=== PATIENT | female | born 1935 | race Caucasian/White ===

== ENCOUNTER 2025-04-08 12:39 | Observation (INO) | payer MEDICARE, SELFPAY ==
[2025-04-08] VITALS (50 sets, daily range): BP systolic 75–130; BP diastolic 42–90; PULSE 60–111; RESP 12–22; TEMP 34.8–36.7; O2SAT 86–100; BMI 21.4
--- NOTE | ~2025-04-08 | CT_ITS ---
EXAMINATION:CT diagnostic chest w con DATE: 04/08/2025 16:27 INDICATION: Hilar abnormality TECHNIQUE: Computed tomography (CT) of the chest was performed with IV intravenous contrast. The dose-length product (DLP) was 282.23 mGy-cm. COMPARISON: Chest x-ray same date FINDINGS: Central and main pulmonary arteries are significantly enlarged especially the main pulmonary artery which measures 4.8 cm, and the right pulmonary artery which measures 3.4 cm in diameter. The pulmonary arteries taper sharply. No central or large pulmonary emboli. No thoracic aortic aneurysm or dissection. Heart size normal with no significant pericardial effusion. Coronary artery calcifications are present. No lymphadenopathy appreciated. Mild dependent fibrotic and/or atelectatic changes in the lungs which are otherwise clear. No consolidation effusion or pneumothorax. Diffuse degenerative changes throughout the bones. Approximately 60% compression fracture of L1 with 7 mm of retropulsion of the superior cortex present. Approximately 40% anterior compression fracture of T12. Approximately 40% anterior compression fracture also present involving T9, and 25 % anterior compression fracture T6. The bones are diffusely osteopenic. Advanced osteopenic and degenerative changes throughout the thoracic spine. IMPRESSION: 1. Significant enlargement of the main and right pulmonary arteries but no suspicious mass or lymphadenopathy. Pulmonary artery enlargement likely associated with pulmonary arterial hypertension. 2. Multilevel compression fractures throughout the thoracic spine and L1; the most severe in seen is at L1 where there is 60% compression fracture and approximate 7 mm of retropulsion. Chronicity of fractures of unknown. Correlate with dedicated spinal imaging as clinically appropriate. 3. Mild ectatic changes in the lung bases which are otherwise clear. Reviewed, dictated and finalized at location A. PUSHER IMPRESSION: 1. Significant enlargement of the main and right pulmonary arteries but no susp icious mass or lymphadenopathy. Pulmonary artery enlargement likely associated with pulmonary arterial hypertension. 2. Multilevel compression fractures throughout the thoracic spine and L1; the m ost severe in seen is at L1 where there is 60% compression fracture and approxi mate 7 mm of retropulsion. Chronicity of fractures of unknown. Correlate with d edicated spinal imaging as clinically appropriate. 3. Mild ectatic changes in the lung bases which are otherwise clear.
--- NOTE | ~2025-04-08 | XR_ITS ---
Examination: XR chest 1V Clinical History: syncope Comparison: None Technique: Portable AP Findings: Heart size mildly enlarged. Right hilar fullness. Mild bibasilar atelectasis. No acute bony abnormality. IMPRESSION: 1. Recommend CT chest with contrast. Right hilar abnormality not excluded. Reviewed, dictated and finalized at location . SPREADER OPERATOR
--- NOTE | ~2025-04-08 | CT_ITS ---
EXAMINATION: CT cervical spine wo con COMPARISON: None HISTORY: pain TECHNIQUE: Axial images were obtained through the spine without IV contrast. Coronal, sagittal reconstruction images were obtained from the axial views. CT scan performed using dose optimization techniques including the following automated exposure control; adjustment of mA and/or kV; use of iterative reconstruction technique. Automatic exposure control was used to reduce radiation dose. Permanent radiation dose record is archived to PACS. FINDINGS: Grade 1 anterolisthesis of C3 on C4 and C4 on C5, no fracture is identified. Severe loss of disc height at C5-6 and C6-7 with moderate to severe canal and foraminal stenosis. Soft tissues unremarkable. Impression: No acute abnormality. Reviewed, dictated and finalized at location P. OPEDIC SURGEON Impression: No acute abnormality.
--- NOTE | ~2025-04-08 | CT_ITS ---
EXAMINATION: CT brain wo con DATE: 04/08/2025 14:21 INDICATION: Fall TECHNIQUE: Computed tomography (CT) of the head was performed without intravenous contrast. Sagittal and coronal reconstructions were performed. The mA was adjusted according to patient size. Iterative reconstruction technique was employed. The dose-length product was 605.33 mGy-cm. COMPARISON: None FINDINGS: No acute intracranial hemorrhage, acute infarction or abnormal extra axial fluid collection. There is moderate scattered white matter hypoattenuation consistent with chronic small vessel ischemic disease. Symmetric prominence of the sulci and ventricles consistent with mild to moderate age-appropriate diffuse cerebral volume loss. No mass/mass effect. Changes of bilateral intraocular lens replacement. Mild mucosal thickening in the ethmoid sinuses with mucosal thickening versus dependent mucus partially opacifying the left sphenoid sinus. The bilateral mastoids are hypopneumatized with small bilateral mastoid effusions. Intracranial calcified cerebral atherosclerosis is noted. IMPRESSION: 1. No acute intracranial process. 2. Age-related changes including mild to moderate diffuse volume loss and moderate scattered white matter hypoattenuation consistent with chronic small vessel ischemic disease. 3. Small bilateral mastoid effusions. Reviewed, dictated and finalized at location A. CH PATHOLOGY TEACHER IMPRESSION: 1. No acute intracranial process. 2. Age-related changes including mild to moderate diffuse volume loss and moder ate scattered white matter hypoattenuation consistent with chronic small vessel ischemic disease. 3. Small bilateral mastoid effusions.
--- NOTE | 2025-04-08 12:58 | ECG_ITS ---
Test Date: 2025-04-08 13:02:53 Measurements Intervals [place] Rate: 97 P: 0 CO: 0 QRS: -2 QRSD: 113 T: 60 QT: 407 QTc: 518 Interpretive Statements ATRIAL FIBRILLATION INCOMPLETE LEFT BUNDLE BRANCH BLOCK NONSPECIFIC ST & T-WAVE ABNORMALITY- LAT/HIGH LAT LEADS BASELINE ARTIFACT- I, II, III, AVF, V1-V2, V6 ABNORMAL ECG No previous ECG available for comparison Electronically Signed On 04-08-2025 13:15:09 BOX BUILDER by Baljit Shah D.O.
[2025-04-08] MEDS: SODIUM CHLORIDE 0.9% IV 1,000 ML 999 ML IV CONT (13:52)
[2025-04-08] MEDS: SODIUM CHLORIDE 0.9% IV 1,000 ML 999 ML (13:53)
--- NOTE | 2025-04-08 13:53 | PC.NURSE ---
miki from Dr Meraz to start 2nd bolus of NS due to BP 76/51
[2025-04-08 14:07] LABS: Hematocrit 37.5 % (37.0-47.0); Hemoglobin 11.8 g/dL (12.0-15.0); Immature Granulocyte Percent A 0.2 % (0-0.5); Lymphocytes Absolute Auto 1.06 K/mm3 (0.9-3.2); Mean Corpuscular HGB Conc 31.5 g/dl (32-36); Mean Corpuscular Hemoglobin 30.1 pg (26-34); Mean Corpuscular Volume 95.7 fl (80-100); Nucleated Red Blood Cells Absolute Auto 0.000 K/mm3 (0.0-0.012); Nucleated Red Blood Cells Perc 0.0 % (0.0-0.2); Platelet Count Result 159 k/mm3 (150-375); Red Blood Count 3.92 M/mm3 (4.2-5.4); White Blood Count 4.2 K/mm3 (4.5-10.0)
[2025-04-08 14:26] LABS: Alanine Aminotransferase 17 U/L (6-35); Albumin Level 4.0 g/dL (3.5-5.1); Alkaline Phosphatase 54 U/L (38-126); Anion Gap 11 mmol/L (4-12); Aspartate Amino Transferase 30 U/L (14-36); Bilirubin,Total 0.9 mg/dL (0.2-1.3); Blood Urea Nitrogen 16 mg/dL (7-17); Calcium 8.5 mg/dL (8.4-10.2); Carbon Dioxide 20 mmol/L (22-30); Chloride 108 mmol/L (98-107); Estimated CRCL calculation 30 ml/min; Estimated Glomerular Filt Rate 53; Glucose 113 mg/dL (65-110); Potassium 3.5 mmol/L (3.4-5.0); Sodium 139 mmol/L (137-145); Total Protein 6.9 g/dL (6.3-8.2)
[2025-04-08 14:30] LABS: Add Urine Microscopic? YES; Appearance Urine Clear (Clear); Glucose Urine UA Negative (Negative); Leukocyte Esterase Ur Negative LEU/UL (Negative); Need Manual Microscopic Reviewed; Nitrate Urine Negative (Negative); Specific Grav Ur 1.008 (1.001-1.035)
[2025-04-08 14:46] LABS: Influenza A QL RT-PCR Negative (Negative); Influenza B QL RT-PCR Negative (Negative); RSV RNA, RT-PCR Negative (Negative); SARS-CoV-2 RNA PCR Negative (Negative)
[2025-04-08] MEDS: SODIUM CHLORIDE 0.9% IV 1,000 ML 150 ML IV CONT (14:59)
--- NOTE | 2025-04-08 15:17 | PC.NURSE ---
Spoke to Clare rodriguez Ute at this time regarding pt condition. All questions answered.
--- NOTE | 2025-04-08 15:21 | ED_ITS ---
HPI - Syncope General Chief Complaint: Syncope Stated Complaint: syncope Time Seen by Provider: 04/08/25 13:08 History of Present Illness HPI narrative: Patient is an 89-year-old female who presents to the ER after having an episode of syncope. She was sitting on the toilet pushing to have a bowel movement when she lost consciousness. Patient recently moved here from [facility] 2 weeks ago. She is suffering from dementia which necessitated the moved to be closer to family. Patient is anticoagulated on apixaban. Son helps with history though it is limited patient has no complaints of pain other than discomfort in her neck. Related Data Allergies Allergy/AdvReac Type Severity Reaction Status Date / Time No Known Allergies Allergy Verified 04/08/25 13:52 Review of Systems 2 Review of Systems: ROS unobtainable: Yes unobtainable due to mental status and other (language) PMFSH Past Medical History Medical History (Updated 04/08/25 @ 19:08 by Aguilar Meraz MD) Dementia Hypertension Afib Exam 2 Narrative: GENERAL: Well-appearing, well-nourished, and in no acute distress. HEAD: Normocephalic, atraumatic. ENT: Mucous membranes moist. CHEST: Clear to auscultation. No respiratory distress. HEART: Irregularly irregular rate and rhythm. Normal peripheral pulses. ABDOMEN: Soft, nontender, nondistended. EXTREMITIES: Normal range of motion. No edema. SKIN: Warm, dry, no rash. NEURO: Alert and oriented x3. PSYCH: Normal mood and affect. Course Course Emergency Course: Persistent hypotension despite IV fluid. Hypothermic and being placed on Marisol Hugger. Admit to hospitalist service. Educated patient son. Patient is a DNR. No obvious source of infection. Vital Signs Vital signs: Vital Signs Pulse Rate 60 04/08/25 12:39 Respiratory Rate 14 04/08/25 12:39 Pulse Oximetry 98 04/08/25 12:39 Oxygen Delivery Room Air 04/08/25 12:39 Temperature 94.6 F L 04/08/25 18:00 Pulse Rate 111 H 04/08/25 18:56 Respiratory Rate 16 04/08/25 18:56 Blood Pressure 103/84 04/08/25 18:56 Pulse Oximetry 98 04/08/25 18:51 Oxygen Delivery Room Air 04/08/25 12:39 Discharge Plan Discharge Clinical Impression: Syncope, Hypothermia, TSH elevation Patient Disposition: Still a Patient Condition: Stable Patient Language: Ukrainian Follow-up/Referrals: PHYSICIAN NOT ON STAFF,NONSTAFF [Primary Care Provider] [facility] Differential Diagnosis Differential Diagnosis: Sepsis, pneumonia, UTI, TORO, anemia, internal bleeding, intracranial hemorrhage Lab Data 04/08/25 13:49 04/08/25 13:49 Labs: Lab Results 04/08/25 04/08/25 Range/Units 13:48 13:49 WBC 4.2 L (4.5-10.0) K/mm3 RBC 3.92 L (4.2-5.4) M/mm3 Hgb 11.8 L (12.0-15.0) g/dL Hct 37.5 (37.0-47.0) % MCV 95.7 (80-100) fl MCH 30.1 (26-34) pg MCHC 31.5 L (32-36) g/dl RDW 15.0 H (11.5-14.5) % Plt Count 159 (150-375) k/mm3 MPV 11.3 H (7.4-10.4) fl Immature Gran % (Auto) 0.2 (0-0.5) % Neut % (Auto) 64.2 (45.5-73.1) % Lymph % (Auto) 25.1 (18.3-44.2) % [place] % (Auto) 8.8 H (2.6-8.5) % Eos % (Auto) 1.2 (0-4.4) % Baso % (Auto) 0.5 (0.2-1.2) % Lymph # (Auto) 1.06 (0.9-3.2) K/mm3 [place] # (Auto) 0.4 (0.1-0.6) K/mm3 Eos # (Auto) 0.1 (0-0.3) K/mm3 Baso # (Auto) 0.0 (0.0-0.1) K/mm3 Abs Immat Gran (auto) 0.01 (0.00-0.031) K/mm3 Absolute Neuts (auto) 2.7 (1.3-6.7) K/mm3 Absolute Nucleated RBC 0.000 (0.0-0.012) K/mm3 Nucleated RBC % 0.0 (0.0-0.2) % Sodium 139 (137-145) mmol/L Potassium 3.5 (3.4-5.0) mmol/L Chloride 108 H (98-107) mmol/L Carbon Dioxide 20 L (22-30) mmol/L Anion Gap 11 (4-12) mmol/L BUN 16 (7-17) mg/dL Creatinine 0.99 (0.7-1.0) mg/dL Estim Creat Clear Calc 30 ml/min Estimated GFR 53 L (59 - ) Glucose 113 H (65-110) mg/dL Calcium 8.5 (8.4-10.2) mg/dL Total Bilirubin 0.9 (0.2-1.3) mg/dL AST 30 (14-36) U/L ALT 17 (6-35) U/L Alkaline Phosphatase 54 (38-126) U/L Total Protein 6.9 (6.3-8.2) g/dL Albumin 4.0 (3.5-5.1) g/dL TSH (Reflex) 6.850 H (0.465-4.68) uIU/mL Free T4 1.83 (0.78-2.19) ng/dL Total T3 0.83 (0.82-1.58) NG/ML Urine Color Yellow (Yellow) Urine Appearance Clear (Clear) Urine pH 7.5 (5.0-9.0) Ur Specific [place] 1.008 (1.001-1.035) Urine Protein 1+ H (Negative) mg/dL Urine Glucose (UA) Negative (Negative) mg/dL Urine Ketones Negative (Negative) mg/dL Ur Blood (Man) Negative (Negative) Urine Nitrate Negative (Negative) Urine Bilirubin Negative (Negative) Urine Urobilinogen 0.2 (<2.0) mg/dL Add Ur Microanalysis Reviewed Leukocyte Esterase Rfl Negative (Negative) RA/UL Urine RBC 0-2 (0-2) /hpf Urine WBC 0-5 (0-3) /hpf Ur Squamous Epith Cells None seen (Few) /hpf Urine Bacteria None seen /hpf Urine Casts 3-5 Influenza A (RT-PCR) Negative (Negative) Influenza B (RT-PCR) Negative (Negative) RSV (RT-PCR) Negative (Negative) SARS-CoV-2 RNA (RT-PCR) Negative (Negative) Blood Type A Positive Antibody Screen Negative Imaging Data Radiologist's impression: ITS Impressions Head CT 04/08/25 14:22 IMPRESSION: 1. No acute intracranial process. 2. Age-related changes including mild to moderate diffuse volume loss and moderate scattered white matter hypoattenuation consistent with chronic small vessel ischemic disease. 3. Small bilateral mastoid effusions. Cervical Spine CT 04/08/25 14:26 Impression: No acute abnormality. Chest X-Ray 04/08/25 14:30 IMPRESSION: 1. Recommend CT chest with contrast. Right hilar abnormality not excluded. Chest CT 04/08/25 16:34 IMPRESSION: 1. Significant enlargement of the main and right pulmonary arteries but no suspicious mass or lymphadenopathy. Pulmonary artery enlargement likely associated with pulmonary arterial hypertension. 2. Multilevel compression fractures throughout the thoracic spine and L1; the most severe in seen is at L1 where there is 60% compression fracture and approximate 7 mm of retropulsion. Chronicity of fractures of unknown. Correlate with dedicated spinal imaging as clinically appropriate. 3. Mild ectatic changes in the lung bases which are otherwise clear.
[2025-04-08 16:13] LABS: Thyroid Stimulating Hormone Reflex 6.850 uIU/mL (0.465-4.68)
[2025-04-08] MEDS: POTASSIUM CHLORIDE 20 MEQ PACKET (FOR LIQUID) 40 MEQ PO (16:38)
[2025-04-08 16:39] LABS: Free T4 Free Thyroxine Reflex 1.83 ng/dL (0.78-2.19)
[2025-04-08 17:21] LABS: Total Triiodothyronine (T3) 0.83 NG/ML (0.82-1.58)
--- NOTE | 2025-04-08 19:44 | WPCEDHO ---
ED Hand Off Checklist All vitals saved:yes IV Site documented:yes All med administrations documented:es Triage Note Triage Note Pt to ED from [facility] 04/08/25 12:39 Living with c/o syncope. Pt was toileting with staff when she pushed too hard and lost consciousness for about 1 minute. Pt has pmh of AAA, a-fib. Pt reports stomach pain. Pt has a 20g in her L hand. Pt is A&Ox3. Allergies No Known Allergies Allergy (Verified 04/08/25 13:52) Active Medications including assessments/comments Sodium Chloride (Normal Saline Iv) 1,000 mls @ 150 mls/hr IV CONT .Q6H40M STA Stop: 04/08/25 21:33 Last Admin: 04/08/25 14:59 Dose: 150 mls/hr Documented By: ARIADNA Infusion/Titration Document 04/08/25 14:59 ARIADNA (Rec: 04/08/25 14:59 ARIADNA [id number]) Intake IV Site Peripheral Access Right Forearm Container Volume 1,000 Waste Amount 0 Dosing Infusion Rate 150 Cumulative Dose Not Applicable Increase/Decrease Started Elapsed Time Elapsed Time ( 0m minutes) Administered/Completed Medications Discontinued Medications Sodium Chloride (Normal Saline Iv) 1,000 mls @ 999 mls/hr IV CONT .Q1H1M STA Stop: 04/08/25 14:43 Last Infusion: 04/08/25 14:52 Dose: Infused Documented By: Admin: 04/08/25 13:52 Dose: 999 mls/hr Documented By: RODNEY Sodium Chloride (Normal Saline Iv) Confirm Administered Dose 1,000 mls @ as directed .ROUTE .STK-MED ONE Stop: 04/08/25 13:45 Last Infusion: 04/08/25 14:52 Dose: Infused Documented By: Admin: 04/08/25 13:53 Dose: 999 mls/hr Documented By: RODNEY Potassium Chloride (Potassium Chloride 20 Meq Packet (For Liquid)) 40 meq PO ONCE STA Stop: 04/08/25 15:51 Last Admin: 04/08/25 16:38 Dose: 40 meq Documented By: ARIADNA Notes 04/08/25 15:17 Nurse Note by Benito Levy Spoke to Clare at [facility] at this time regarding pt condition. All questions answered. Initialized on 04/08/25 15:17 - END OF NOTE 04/08/25 13:53 Nurse Note by Joby Newton from Dr Meraz to start 2nd bolus of NS due to BP 76/51 Initialized on 04/08/25 13:53 - END OF NOTE Interventions/Assessments Cardiac Monitoring Start: 04/08/25 12:39 Freq: Status: Active Protocol: Document 04/08/25 12:56 MCO (Rec: 04/08/25 12:57 MCO [id number]) Baggage Checker Assessment Baggage Checker Yes Applied Pulse Rate (60-100) 60 EKG Rythm Atrial Fibrillation IV / Saline Lock, Insert Start: 04/08/25 12:39 Freq: Status: Active Protocol: Document 04/08/25 12:57 MCO (Rec: 04/08/25 12:58 MCO [id number]) IV Assessment Peripheral Access Left Hand IV Catheter Access Initiated Before Arrival IV Insertion Date 04/08/25 Catheter Gauge 20 IV Site Assessment WNL IV Care and WNL Maintenance IV / Saline Lock, Insert Start: 04/08/25 12:58 Freq: STAT Status: Active Protocol: Document 04/08/25 14:13 KJT (Rec: 04/08/25 14:13 KJT [id number]) IV Assessment Peripheral Access Right Forearm IV Catheter Access Initiated IV Insertion Date 04/08/25 IV Insertion Time 14:13 Catheter Gauge 20 IV Insertion 1 Attempts Ultrasound Used for No Placement IV Site Assessment WNL IV Care and WNL Maintenance PA: Cardiovascular Assessment Start: 04/08/25 12:39 Freq: Status: Active Protocol: Document 04/08/25 12:55 MCO (Rec: 04/08/25 12:56 MCO [id number]) Cardiovascular Assessment Cardiovascular None Symptoms Skin Description Cool Heart Sounds Normal Jugular Vein None Distention PA: Neurological Assessment Start: 04/08/25 12:39 Freq: Status: Active Protocol: Document 04/08/25 12:55 MCO (Rec: 04/08/25 12:56 MCO [id number]) Neurological Assessment Level of Alert,Awake Consciousness Arousable to Verbal Orientation Oriented to Person,Oriented to Time Neurological History of Loss of Consciousness Symptoms [place] Coma Scale Eyes Open Verbal Oriented and Alert Motor Follows Commands [place] Coma Total 15 Score Last Vital Signs Temperature 94.6 F L 04/08/25 18:00 Pulse Rate 111 H 04/08/25 18:56 Respiratory Rate 16 04/08/25 18:56 Pulse Oximetry 98 04/08/25 18:51 Blood Pressure 103/84 04/08/25 18:56 Blood Pressure Mean 91 04/08/25 18:56 Blood Pressure Position Sitting 04/08/25 13:32 Oxygen Delivery Room Air 04/08/25 12:39 Weight 56.4 kg 04/08/25 12:39 Last Result - Abnormals Only WBC 4.2 K/mm3 (4.5-10.0) L 04/08/25 13:49 RBC 3.92 M/mm3 (4.2-5.4) L 04/08/25 13:49 Hgb 11.8 g/dL (12.0-15.0) L 04/08/25 13:49 MCHC 31.5 g/dl (32-36) L 04/08/25 13:49 RDW 15.0 % (11.5-14.5) H 04/08/25 13:49 MPV 11.3 fl (7.4-10.4) H 04/08/25 13:49 [place] % (Auto) 8.8 % (2.6-8.5) H 04/08/25 13:49 Chloride 108 mmol/L (98-107) H 04/08/25 13:49 Carbon Dioxide 20 mmol/L (22-30) L 04/08/25 13:49 Estimated GFR 53 (59-) L 04/08/25 13:49 Glucose 113 mg/dL (65-110) H 04/08/25 13:49 TSH (Reflex) 6.850 uIU/mL (0.465-4.68) H 04/08/25 13:48 Urine Protein 1+ mg/dL (Negative) H 04/08/25 13:49 Most Recent Suicide Severity Rating Suicide Severity Rating NO RISK INDICATED 04/08/25 12:39
--- NOTE | 2025-04-08 20:00 | ADMGEN ---
This patient, Nanette Luciano, was admitted to IMU Room 206-01. Patient/family oriented to hospital policies and general routines including ID bracelet, bed and alarms, visiting hours, pain management, procedures, bathroom and other care routines, personal items, smoking policy, room service/diet, and visiting hours. Information on how to activate the Rapid Response Team has been discussed. Patient/Family are encouraged to report perceived risks to care and to ask questions if they do not understand what they are told or what they should do.
[2025-04-09] VITALS (11 sets, daily range): BP systolic 124–139; BP diastolic 91–99; PULSE 84–124; RESP 12–20; TEMP 36.4–36.7; O2SAT 96–99
--- NOTE | 2025-04-09 | ECHO_ITS ---
Patient Info Name: Nanette Luciano Age: 89 years : 1935 Gender: Female Ht: 65 in Wt: 124 lbs BSA: 1.60 m2 HR: 84 bpm BP: 124 / 99 mmHg Technical Quality: Good Exam Date: 04/09/2025 7:34 AM Patient Status: I Admit Date: 04/08/2025 Exam Type: CA echo doppler color flow Complete two-dimensional, color flow and Doppler transthoracic echocardiogram is performed. Staff Referring Physician: Aguilar Meraz MD Frame Table Operator Helper: Juancho Ray III Attending Provider: Frankie Silva Summary 1. Complete two-dimensional, color flow and Doppler transthoracic echocardiogram is performed. 2. Left ventricular systolic function is normal, estimated at 50-55. 3. There is mildly increased left ventricular wall thickness. 4. Left atrial chamber dimension is moderately enlarged. 5. There is mild aortic valve regurgitation. 6. There is mild tricuspid valve regurgitation. 7. Moderate pulmonary hypertension, estimated pulmonary arterial systolic pressure is 50 mmHg. 8. There is mild pulmonic regurgitation. Left Ventricle Left ventricular chamber dimension is normal. Left ventricular systolic function is normal, estimated at 50-55. There is mildly increased left ventricular wall thickness. Left ventricular septal wall motion is normal. The left ventricular diastolic function is abnormal. Right Ventricle Right ventricular chamber dimension is normal. Right ventricular systolic function is normal. Left Atria Left atrial chamber dimension is moderately enlarged. Right Atria Right atrial chamber dimension is normal. Aortic Valve The aortic valve is probable trileaflet. There is mild aortic valve sclerosis. There is no aortic valve stenosis. There is mild aortic valve regurgitation. Pulmonic Valve The pulmonic valve is normal. There is no pulmonic valve stenosis. There is mild pulmonic regurgitation. Mitral Valve The mitral valve has normal leaflets. There is no mitral valve stenosis. There is no mitral valve regurgitation. There is mild mitral valve calcification. Tricuspid Valve The tricuspid valve leaflets are normal. There is no significant tricuspid valve stenosis. There is mild tricuspid valve regurgitation. Moderate pulmonary hypertension, estimated pulmonary arterial systolic pressure is 50 mmHg. Pericardium/Pleural The pericardium appears normal. There is no pericardial effusion. Inferior Vena Cava Normal inferior vena cava with >50% collapse upon inspiration consistent with normal right atrial pressure, 10 mmHg. Aorta The aortic root size at the sinus of Valsalva is normal. The prox ascending aorta size is normal. Left Ventricular Outflow Tract Name Value Normal LVOT 2D LVOT Diameter 2.0 cm LVOT Doppler LVOT Peak Velocity 90 cm/s LVOT Peak Gradient 3 mmHg LVOT Mean Gradient 2 mmHg LVOT VTI 18 cm LVOT VTI/AV VTI Ratio 0.5 LVOT Stroke Volume 53 ml LVOT CO 4.6 l/min LVOT CI 2.8 l/min/m2 Pulmonic Valve Name Value Normal PV Doppler PV Peak Velocity 119 cm/s PV Peak Gradient 6 mmHg PV Mean Gradient 3 mmHg PV Regurgitation Doppler [place] Peak End Diastolic Velocity 210 cm/s Mitral Valve Name Value Normal MV Doppler MV Peak Gradient 5 mmHg MV Mean Gradient 2 mmHg MV Area (Cont Eq VTI) 2.8 cm2 MV Diastolic Function MV E Peak Velocity 139 cm/s MV A Peak Velocity 1 cm/s MV E/A 224.2 MV Decel Time (PW) 167 ms MV Annular TDI MV E/e' (Septal) 28.7 MV E/e' (Lateral) 13.1 MV E/e' (Average) 20.9 Tricuspid Valve Name Value Normal TV Regurgitation Doppler TR Peak Velocity 314 cm/s TR Peak Gradient 28 mmHg Estimated PAP/RSVP RA Pressure 10 mmHg <=5 PA Systolic Pressure 50 mmHg <36 RV Systolic Pressure 50 mmHg <36 TV Annular TDI TV Lateral Helen s' Velocity 16.3 cm/s >=9.5 Aortic Valve Name Value Normal AV Doppler AV Peak Velocity 262 cm/s AV Peak Gradient 14 mmHg AV Mean Gradient 6 mmHg AV VTI 38 cm AV Area (Cont Eq VTI) 1.4 cm2 >=3.0 AV Area (Cont Eq Joce) 1.0 cm2 AV DI (Joce) 0.34 AV Regurgitation 2D LVOT Area 3.0 cm2 Ventricles Name Value Normal LV Dimensions 2D/MM LVOT Diameter 2.0 cm LV Fractional Shortening/Ejection Fraction 2D/MM LV Diastolic Volume (4C MOD) 60 ml LV EF (4C MOD) 48 % LV Diastolic Volume (2C MOD) 45 ml LV EF (2C MOD) 45 % LV Diastolic Volume (BP MOD) 52 ml 46-106 LV Diastolic Volume Index (BP MOD) 32 ml/m2 29-61 LV Systolic Volume (BP MOD) 28 ml 14-42 LV Systolic Volume Index (BP MOD) 17 ml/m2 8-24 LV EF (BP MOD) 47 % 54-74 LV Diastolic Length (4C) 6.1 cm LV Systolic Length (4C) 5.4 cm LV Stroke Volume (4C MOD) 29 ml Atria Name Value Normal LA Dimensions LA Volume (4C A-L) 116 ml LA Volume (BP A-L) 127 ml RA Dimensions RA Systolic Major [place] Length (4C) 5.2 cm 2.2-2.8 RA Area (4C) 18.0 cm2 <=18.0 Report Signatures
--- NOTE | 2025-04-09 01:42 | PM.IMHP2 ---
H&P: HPI History of Present Illness Date/Time: 04/09/25 01:42 Chief Complaint: Passed out while on the toilet Narrative: 89-year-old female with a past medical history dementia, CHF, atrial fibrillation on chronic anticoagulation, TIA, abdominal aortic aneurysm and GERD who presented to the ER from [facility] after having a syncopal episode while on the toilet trying to have a bowel movement. Source of information comes completely from ER records and EMS records as the patient is only oriented x1 and is extremely hard of hearing. The patient evidently recently moved here from [place] and will start speaking [place] and has to be reminded that she is in the [place] When I tried to get the patient to put in her hearing aids when I tried to get her to put his her hearing aids in she proceeded to try to put them in her mouth and swallow them. The patient had evidently reported abdominal pain in the ER. Per EMS report the patient had lost consciousness for about a minute. Review of Systems Review of Systems: Unobtainable due to patient's history of dementia and severe hearing loss PMFSH Past Medical History Medical History (Updated 04/10/25 @ 06:55 by Eliana Bingham DO) Moderate pulmonary hypertension Echocardiogram 01/2025, RVSP 50, normal left ventricular systolic function EF 50-55, diastolic dysfunction and mild aortic valve regurgitation mild tricuspid valve regurgitation Osteoporosis Compression fracture Abdominal aortic aneurysm CHF (congestive heart failure) GERD (gastroesophageal reflux disease) Chronic anticoagulation Dementia Hypertension Afib Surgical History Surgical History (Updated 04/10/25 @ 06:48 by Eliana Bingham DO) Surgical history unknown Family History Family History (Updated 04/10/25 @ 06:48 by Eliana Bingham DO) Other Unknown family medical history Social History Social History (Updated 04/09/25 @ 09:19 by Eliana Bingham DO) Social History: Code status: DNR/DNI Healthcare power insurance attorney: Son Lack of Transportation: No Lack of Food: Never True Current Housing: I Have Housing Concerned About Future Housing: No Difficulty Paying Gas/Electric Bills: No Difficulty Paying for Meds: No Currently Unemployed: No Education: Decline to Answer Difficulty w/ Childcare or Family Care: No Spiritual care concerns: Yes (Latter-Day) Meds Home Medications and Allergies Home Medications ?Medication ?Instructions ?Recorded ?Confirmed ?Type amiodarone 200 mg tablet 100 mg PO .COMPLEX 04/08/25 04/08/25 History atorvastatin 10 mg tablet (Lipitor) 5 mg PO DAILY 04/08/25 04/08/25 History carvedilol 12.5 mg tablet 12.5 mg PO BID 04/08/25 04/08/25 History furosemide 40 mg tablet (Lasix) 20 mg PO DAILY 04/08/25 04/08/25 History lansoprazole 30 mg capsule,delayed 30 mg PO DAILY 04/08/25 04/08/25 History release multivitamin (Daily Multi-Vitamin 1 tablet PO DAILY 04/08/25 04/08/25 History tablet) potassium chloride 20 mEq 20 meq PO BID 04/08/25 04/08/25 History tablet,extended release (K-Tab) rivaroxaban 15 mg tablet (Xarelto) 15 mg PO QPM 04/08/25 04/08/25 History sacubitril 49 mg-valsartan 51 mg 1 tablet PO BID 04/08/25 04/08/25 History tablet (Entresto) docusate sodium 100 mg capsule 100 mg PO DAILY #30 caps 04/09/25 Rx (Colace) Allergies Allergy/AdvReac Type Severity Reaction Status Date / Time No Known Allergies Allergy Verified 04/08/25 20:41 Vital Signs Vital Signs - 24 hr 04/08/25 12:39 04/08/25 12:56 04/08/25 13:29 Temperature Pulse Rate 60 60 84 Respiratory Rate 14 Blood Pressure 80/47 L Pulse Oximetry 98 Oxygen Delivery Room Air 04/08/25 13:32 04/08/25 14:47 04/08/25 14:56 Temperature Pulse Rate 83 93 89 Respiratory Rate 18 16 Blood Pressure 75/53 L 91/68 L Pulse Oximetry Oxygen Delivery 04/08/25 14:57 04/08/25 15:00 04/08/25 15:01 Temperature Pulse Rate 94 96 93 Respiratory Rate 15 17 16 Blood Pressure 88/58 L Pulse Oximetry Oxygen Delivery 04/08/25 15:06 04/08/25 15:11 04/08/25 15:15 Temperature Pulse Rate 97 98 92 Respiratory Rate 14 22 H 17 Blood Pressure 97/63 L 87/70 L 86/71 L Pulse Oximetry 97 Oxygen Delivery 04/08/25 15:16 04/08/25 15:21 04/08/25 15:24 Temperature 95.2 F L Pulse Rate 95 96 105 H Respiratory Rate 18 20 20 Blood Pressure 85/64 L 85/64 L Pulse Oximetry 95 98 97 Oxygen Delivery 04/08/25 15:25 04/08/25 15:30 04/08/25 15:36 Temperature Pulse Rate 92 90 99 Respiratory Rate 15 19 20 Blood Pressure 88/72 L 86/62 L Pulse Oximetry 88 L 95 100 Oxygen Delivery 04/08/25 15:41 04/08/25 15:45 04/08/25 15:46 Temperature Pulse Rate 100 96 96 Respiratory Rate 18 18 16 Blood Pressure 95/63 L 86/60 L Pulse Oximetry 100 100 95 Oxygen Delivery 04/08/25 15:51 04/08/25 16:00 04/08/25 16:01 Temperature Pulse Rate 94 97 98 Respiratory Rate 16 12 18 Blood Pressure 85/56 L 98/59 L Pulse Oximetry 98 98 98 Oxygen Delivery 04/08/25 16:06 04/08/25 16:29 04/08/25 16:43 Temperature Pulse Rate 90 103 H 95 Respiratory Rate 16 18 14 Blood Pressure 95/64 L 97/42 L Pulse Oximetry 98 98 97 Oxygen Delivery 04/08/25 16:58 04/08/25 17:03 04/08/25 17:19 Temperature Pulse Rate 95 93 103 H Respiratory Rate 14 14 22 H Blood Pressure Pulse Oximetry 87 L 98 86 L Oxygen Delivery 04/08/25 17:23 04/08/25 17:30 04/08/25 17:31 Temperature Pulse Rate 93 90 107 H Respiratory Rate 19 21 H 17 Blood Pressure 110/90 98/78 L Pulse Oximetry Oxygen Delivery 04/08/25 17:51 04/08/25 17:52 04/08/25 18:00 Temperature Pulse Rate 95 94 103 H Respiratory Rate 14 15 15 Blood Pressure 102/70 Pulse Oximetry 98 99 97 Oxygen Delivery 04/08/25 18:00 04/08/25 18:00 04/08/25 18:01 Temperature 94.6 F L 94.6 F L Pulse Rate 88 95 Respiratory Rate 18 17 Blood Pressure 96/65 L Pulse Oximetry 98 97 Oxygen Delivery 04/08/25 18:05 04/08/25 18:23 04/08/25 18:26 Temperature Pulse Rate 89 80 81 Respiratory Rate 13 16 18 Blood Pressure 100/70 104/71 104/71 Pulse Oximetry 99 99 100 Oxygen Delivery 04/08/25 18:30 04/08/25 18:32 04/08/25 18:47 Temperature Pulse Rate 78 82 79 Respiratory Rate 21 H 14 16 Blood Pressure 105/51 L Pulse Oximetry 98 99 100 Oxygen Delivery 04/08/25 18:51 04/08/25 18:56 04/08/25 19:45 Temperature 98.0 F Pulse Rate 78 111 H 86 Respiratory Rate 17 16 18 Blood Pressure 114/69 103/84 114/73 Pulse Oximetry 98 98 Oxygen Delivery 04/08/25 20:00 04/08/25 20:05 04/08/25 20:07 Temperature 98 F Pulse Rate 104 H 71 Respiratory Rate 16 Blood Pressure 105/60 Pulse Oximetry 96 Oxygen Delivery Room Air 04/08/25 22:00 04/08/25 23:51 04/09/25 00:00 Temperature 98.1 F Pulse Rate 100 106 H Respiratory Rate 16 Blood Pressure 130/90 Pulse Oximetry 97 Oxygen Delivery Room Air 04/09/25 00:00 Temperature Pulse Rate 109 H Respiratory Rate Blood Pressure Pulse Oximetry Oxygen Delivery Exam Narrative: Weight 54.9 kg BMI 21.4 Const: Other: No acute distress, thin body habitus, elderly, frail HENMT: Other: Mucous membranes are tacky, no oral pharyngeal erythema, positive conjunctival pallor, no scleral icterus Neck: Other: No JVD, no lymphadenopathy Resp: Other: Clear to auscultation bilaterally, no increased work of breathing Cardio: Other: Irregularly irregular, rate controlled, 2+ bilateral radial pedal pulses GI: Other: Soft, nontender, nondistended, positive bowel sounds : Other: Continent of urine Skin: Other: Generalized pallor, non jaundice Neuro: Other: Patient is alert oriented to self, she is markedly hard of hearing which limits much of the neurologic evaluation as the patient refuses to put her hearing aids in to answer questions, patient did try to put her hearing aids in her mouth to swallow them likely were medication, she is moving all extremities equally, speech is clear Extrem: Other: No clubbing, cyanosis or edema Psych: Other: Pleasantly confused, cooperative, poor judgment and insight Results Labs Labs: Laboratory Tests 04/08/25 13:49 04/08/25 13:49 04/08/25 04/08/25 13:48 13:49 WBC 4.2 L RBC 3.92 L Hgb 11.8 L Hct 37.5 MCV 95.7 MCH 30.1 MCHC 31.5 L RDW 15.0 H Plt Count 159 MPV 11.3 H Immature Gran % (Auto) 0.2 Neut % (Auto) 64.2 Lymph % (Auto) 25.1 [place] % (Auto) 8.8 H Eos % (Auto) 1.2 Baso % (Auto) 0.5 Lymph # (Auto) 1.06 [place] # (Auto) 0.4 Eos # (Auto) 0.1 Baso # (Auto) 0.0 Abs Immat Gran (auto) 0.01 Absolute Neuts (auto) 2.7 Absolute Nucleated RBC 0.000 Nucleated RBC % 0.0 Sodium 139 Potassium 3.5 Chloride 108 H Carbon Dioxide 20 L Anion Gap 11 BUN 16 Creatinine 0.99 Estim Creat Clear Calc 30 Estimated GFR 53 L Glucose 113 H Calcium 8.5 Total Bilirubin 0.9 AST 30 ALT 17 Alkaline Phosphatase 54 Total Protein 6.9 Albumin 4.0 TSH (Reflex) 6.850 H Free T4 1.83 Total T3 0.83 Urine Color Yellow Urine Appearance Clear Urine pH 7.5 Ur Specific [place] 1.008 Urine Protein 1+ H Urine Glucose (UA) Negative Urine Ketones Negative Ur Blood (Man) Negative Urine Nitrate Negative Urine Bilirubin Negative Urine Urobilinogen 0.2 Add Ur Microanalysis Reviewed Leukocyte Esterase Rfl Negative Urine RBC 0-2 Urine WBC 0-5 Ur Squamous Epith Cells None seen Urine Bacteria None seen Urine Casts 3-5 Influenza A (RT-PCR) Negative Influenza B (RT-PCR) Negative RSV (RT-PCR) Negative SARS-CoV-2 RNA (RT-PCR) Negative Blood Type A Positive Antibody Screen Negative EKG:Test Date: 2025-04-08 13:02:53 Measurements Intervals [place] Rate: 97 P: 0 WV: 0 QRS: -2 QRSD: 113 T: 60 QT: 407 QTc: 518 Interpretive Statements ATRIAL FIBRILLATION INCOMPLETE LEFT BUNDLE BRANCH BLOCK NONSPECIFIC ST & T-WAVE ABNORMALITY- LAT/HIGH LAT LEADS BASELINE ARTIFACT- I, II, III, AVF, V1-V2, V6 ABNORMAL ECG No previous ECG available for comparison Impressions Head CT 04/08/25 14:22 IMPRESSION: 1. No acute intracranial process. 2. Age-related changes including mild to moderate diffuse volume loss and moderate scattered white matter hypoattenuation consistent with chronic small vessel ischemic disease. 3. Small bilateral mastoid effusions. Cervical Spine CT 04/08/25 14:26 Impression: No acute abnormality. Chest X-Ray 04/08/25 14:30 IMPRESSION: 1. Recommend CT chest with contrast. Right hilar abnormality not excluded. Chest CT 04/08/25 16:34 IMPRESSION: 1. Significant enlargement of the main and right pulmonary arteries but no suspicious mass or lymphadenopathy. Pulmonary artery enlargement likely associated with pulmonary arterial hypertension. 2. Multilevel compression fractures throughout the thoracic spine and L1; the most severe in seen is at L1 where there is 60% compression fracture and approximate 7 mm of retropulsion. Chronicity of fractures of unknown. Correlate with dedicated spinal imaging as clinically appropriate. 3. Mild ectatic changes in the lung bases which are otherwise clear. Quality VTE Prophylaxis VTE prophylaxis: pharmacologic ordered (Continue home Xarelto) Assessment and Plan Assessment and plan (1) Syncope: Qualifiers: Syncope type: vasovagal syncope Qualified Code(s): R55 - Syncope and collapse Code(s): R55 - Syncope and collapse Status: Acute (2) TSH elevation: Code(s): R79.89 - Other specified abnormal findings of blood chemistry Status: Acute (3) Hypothermia: Qualifiers: Encounter type: sequela Qualified Code(s): T68.XXXS - Hypothermia, sequela Code(s): T68.XXXA - Hypothermia, initial encounter Status: Acute (4) Chronic anticoagulation: Code(s): Z79.01 - penitentiary (current) use of anticoagulants Status: Acute (5) QT prolongation: Code(s): R94.31 - Abnormal electrocardiogram [ECG] [EKG] Status: Acute (6) CHF (congestive heart failure): Qualifiers: Heart failure chronicity: chronic Heart failure type: unspecified Qualified Code(s): I50.9 - Heart failure, unspecified Code(s): I50.9 - Heart failure, unspecified Status: Acute (7) Enlarged pulmonary artery: Code(s): I28.8 - Other diseases of pulmonary vessels Status: Acute Plan Patient had syncope most likely due to vasovagal origin and hypotension given report of syncopal episode with bowel movement and hypotension noted by EMS. Blood pressures improved after IV fluid hydration and hypotension has since resolved. Cannot rule out underlying cardiac cause given patient's history of AFib and CHF. Will obtain echocardiogram to further evaluate cardiac structure and function expect Nadine in the setting of enlarged pulmonary arteries on imaging suggesting underlying pulmonary hypertension. Will continue monitor on telemetry and resume home amiodarone and Coreg and Xarelto but will hold Lasix and Entresto. Patient did have hypothermia on presentation to the ER but was already normal thermic but time she arrived to the intermediate unit. Patient does have some leukopenia but has no evidence of acute viral process with negative COVID flu and RSV PCR. 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 He also has mild anemia noted with baseline unknown. No evidence of acute GI bleed. Will resume home Xarelto and monitor hemoglobin with repeat CBC in a.m.. Hypothermia could be due to environmental causes instead of primary infection. TSH was mildly elevated but normal T3 and T4 so hypothyroidism causing hypothermia seems less likely. Will monitor vital signs closely. Patient has been admitted as observation status. MEDICAL DECISION MAKING NARRATIVE -Spoke with the ED provider in detail regarding patient's evaluation, workup and management -Patient seen and examined at bedside -Collaborated with patient's nurse at the bedside in detail and addressed all concerns -Labs, electrolytes, radiology, investigations and test results personally reviewed and interpreted unless otherwise specified -ED/Consult/Nursing/Ancilliary notes on the chart reviewed and appreciated Hospitalist MIPS Advance Care Plan I have confirmed that the patient's Advanced Care Plan is present, code status is documented, or surrogate decision maker is listed in patient medical record.: Yes Medication Reconciliation I have utilized all available resources to obtain, update and review the patients current medications (includes all prescriptions, OTC, herbals, cannabis, and nutritional supplements).: Yes
[2025-04-09 04:30] LABS: Hematocrit 31.4 % (37.0-47.0); Hemoglobin 10.0 g/dL (12.0-15.0); Mean Corpuscular HGB Conc 31.8 g/dl (32-36); Mean Corpuscular Hemoglobin 30.0 pg (26-34); Mean Corpuscular Volume 94.3 fl (80-100); Platelet Count Result 155 k/mm3 (150-375); Red Blood Count 3.33 M/mm3 (4.2-5.4); White Blood Count 4.3 K/mm3 (4.5-10.0)
[2025-04-09 04:42] LABS: Anion Gap 5 mmol/L (4-12); Blood Urea Nitrogen 10 mg/dL (7-17); Calcium 7.8 mg/dL (8.4-10.2); Carbon Dioxide 22 mmol/L (22-30); Chloride 110 mmol/L (98-107); Estimated CRCL calculation 34 ml/min; Estimated Glomerular Filt Rate > 60; Glucose 73 mg/dL (65-110); Magnesium 1.7 mg/dL (1.6-2.3); Potassium 3.4 mmol/L (3.4-5.0); Sodium 137 mmol/L (137-145)
[2025-04-09] MEDS: LANSOPRAZOLE ODT 30 MG TAB.RAP.DR PO (06:09)
[2025-04-09] MEDS: MULTIVITAMINS THERAPEUTIC TAB (*BKC) 1 TABLET PO (08:46)
[2025-04-09] MEDS: POTASSIUM CHLORIDE 20 MEQ ER TABLET PO ×2 (08:46→18:26)
[2025-04-09] MEDS: SACUBITRIL/VALSARTAN 49-51 MG TABLET 1 TABLET PO (08:47)
--- NOTE | 2025-04-09 16:08 | P.DS_ITS ---
DS: Admitting Diagnosis Discharge Date 04/09/25 Admitting Diagnosis Syncope DS: Discharge Diagnosis Discharge Diagnosis (1) Syncope: Qualifiers: Syncope type: vasovagal syncope Qualified Code(s): R55 - Syncope and collapse Code(s): R55 - Syncope and collapse Status: Acute (2) TSH elevation: Code(s): R79.89 - Other specified abnormal findings of blood chemistry Status: Acute (3) Hypothermia: Qualifiers: Encounter type: sequela Qualified Code(s): T68.XXXS - Hypothermia, sequela Code(s): T68.XXXA - Hypothermia, initial encounter Status: Acute (4) QT prolongation: Code(s): R94.31 - Abnormal electrocardiogram [ECG] [EKG] Status: Acute (5) CHF (congestive heart failure): Qualifiers: Heart failure chronicity: chronic Heart failure type: unspecified Qualified Code(s): I50.9 - Heart failure, unspecified Code(s): I50.9 - Heart failure, unspecified Status: Acute (6) Pulmonary hypertension: Code(s): I27.20 - Pulmonary hypertension, unspecified Status: Acute (7) Afib: Code(s): I48.91 - Unspecified atrial fibrillation Status: Acute DS: Summary Hospital Course Reason for hospitalization: 89yo female with dementia, CHF, AFib on chronic anticoagulation, TIA, abdominal aortic aneurysm and GERD who presented to the [facility] after having a syncopal episode while on the toilet trying to have a bowel movement. Please see H&P for details. Hospital Course: Patient was hypotensive by EMS. In the emergency room, blood pressure was 75/53. Her temperature was 95.2?. White count was 4200 with hemoglobin 11.8 normal platelet count. Bicarb was 20 otherwise CMP was normal. TSH was slightly elevated at 6.8 with a normal free T4. UA was not consistent with UTI. Influenza, RSV and COVID PCR were negative. Chest x-ray showed right hilar fullness but CT of the chest showed no suspicious masses or lymphadenopathy. She did have significant enlargement the main and right pulmonary arteries and multiple level compression fractures throughout the thoracic spine and L1. Patient is without symptoms and was suspected that these thoracic and lumbar fractures are chronic. Cervical spine CT showed no acute abnormalities. She did have moderate to severe canal and foraminal stenosis at C6-7. CT of the head showed no acute intracranial process. Chest x-ray showed atrial fibrillation with incomplete left bundle branch block and nonspecific ST-T wave changes. Her corrected QT was 518. Echocardiogram showed EF of 50-55%, diastolic dysfunction and moderate pulmonary hypertension. Patient was treated with a Marisol Hugger in the ED but was able to be weaned off without issue. He was felt the hypothermia could be related to environmental causes. No new medications. It was felt that her syncope was related to vasovagal and hypotension. She has remained asymptomatic since admission. She overall did well was able be discharged on 04/09/2025. Discharge instructions were discussed with family in the room. All questions were answered Status at Discharge Cognitive/behavioral status at discharge: Stable Time Spent with Patient Time attestation: Total time spent providing and/or coordinating discharge services: 35 minutes Time spent: Greater than 30 minutes Exam Narrative: AF 97.6 131/94 99 20 99%ra Gen - NARD Chest - CTA bilaterally, nml RR CV -irregularly irregular. Telemetry showing atrial fibrillation with occasional RVR. Abd - Soft, NT/ND, Positive BS Ext - No pedal edema Neuro - Alert but confused. Follows commands. No focal weakness. Psych - Nml mood and affect Skin - Warm and dry DS: Data Data Completed and Pending Labs on day of discharge: Labs from last 24 hours 04/09/25 04/08/25 04:07 13:48 WBC 4.3 L RBC 3.33 L Hgb 10.0 L Hct 31.4 L MCV 94.3 MCH 30.0 MCHC 31.8 L RDW 14.9 H Plt Count 155 MPV 11.0 H Sodium 137 Potassium 3.4 Chloride 110 H Carbon Dioxide 22 Anion Gap 5 BUN 10 D Creatinine 0.80 Estim Creat Clear Calc 34 Estimated GFR > 60 Glucose 73 Calcium 7.8 L Magnesium 1.7 TSH (Reflex) 6.850 H Free T4 1.83 Total T3 0.83 Discharge Plan Discharge Attending physician on discharge: Tim Jay Consulting providers: Jaun, Aguilar Discharging Clinician: Tim Jay Anticipated Discharge Date/Time: 04/09/25 16:35 Patient Disposition: NH [facility] Activity: as tolerated Diet: heart healthy Discharge Instructions: Check blood pressure 1 to 2 times a day. Record for the doctor's review. Take precautions to avoid falls. Rise slowly from a lying or sitting position. Pause before standing or walking. Check daily morning weights after voiding. Call the doctor if the patient gains more than 3 lb in 2 days or 5 lb in 1 week. Contact the doctor if the patient has any low blood pressure, lightheadedness with standing or other worrisome symptoms. Avoid NSAIDs (ibuprofen, naproxen, Aleve). Tylenol is safe to take. Follow-up with the provider at the facility. Follow-up with [facility] on Apr 28 as scheduled. Thank you for using [facility] for your health care needs. Patient Instructions: Antibiotic Form, Rivaroxaban (By mouth), Heart Failure (DC), Syncope (DC), Safe Use of Anticoagulants (DC) Patient Language: Kyrgyz Stand Alone Forms: General Discharge Information Follow-up/Referrals: PHYSICIAN NOT ON STAFF,NONSTAFF [Primary Care Provider] - Other Discharge Medications: New docusate sodium [Colace] 100 mg capsule 100 mg PO DAILY Qty: 30 0RF Continued amiodarone 200 mg tablet 100 mg PO .COMPLEX Rx Instructions: 100 mg orally three times a week MWF atorvastatin [Lipitor] 10 mg tablet 5 mg PO DAILY multivitamin [Daily Multi-Vitamin] Tablet 1 tablet PO DAILY furosemide [Lasix] 40 mg tablet 20 mg PO DAILY lansoprazole 30 mg capsule,delayed release(DR/EC) 30 mg PO DAILY Xarelto 15 mg tablet 15 mg PO QPM Rx Instructions: must administer with evening meal carvedilol 12.5 mg tablet 12.5 mg PO BID Rx Instructions: must administer with a meal/food potassium chloride [K-Tab] 20 mEq tablet extended release 20 meq PO BID sacubitril-valsartan [Entresto] 49-51 mg tablet 1 tablet PO BID Date of admission: 04/09/25 11:05 Primary Care Provider: PHYSICIAN NOT ON STAFF,NONSTAFF Admitting Provider: Frankie Silva Attending physician on admission: Frankie Silva Condition: Stable Hospitalist MIPS Heart Failure (Exclusion) Patient has history of Heart Transplant or Left Ventricular Assistive Device?: No IF YES, STOP HERE Heart Failure (Qualifier) Patient has current or prior documentation of LVEF less than or equal to 40%, or mod/servere depressed LVSF?: No IF NO, STOP HERE
[2025-04-09] MEDS: RIVAROXABAN 15 MG TABLET PO (18:26)
== END 2025-04-09 18:37 ==
LOC: ANHED 19:08 → ANHIMU 22:39 → ANH3MEDSUR 04-12 07:36 → ANHIMU 04-12 07:36
PROVIDERS: Internal Medicine; Admitting Provider General Practice; Emergency Provider Emergency Medicine; Visit Provider Internal Medicine
DX: R55 Syncope and collapse (principal); R79.89 Other specified abnormal findings of blood chemistry; T68.XXXA Hypothermia, initial encounter; R94.31 Abnormal electrocardiogram [ECG] [EKG]; I48.91 Unspecified atrial fibrillation; I27.20 Pulmonary hypertension, unspecified; I44.7 Left bundle-branch block, unspecified; I50.9 Heart failure, unspecified; Z20.822 Contact with and (suspected) exposure to COVID-19; Z79.01 Long term (current) use of anticoagulants; K21.9 Gastro-esophageal reflux disease without esophagitis; F03.90 Unspecified dementia, unspecified severity, without behavioral disturbance, psychotic disturbance, mood disturbance, and anxiety; M81.0 Age-related osteoporosis without current pathological fracture; Z86.79 Personal history of other diseases of the circulatory system
CPT/HCPCS: 36415; 70450; 71045; 71260; 72125; 80048; 80053; 81001; 83735; 84439; 84443; 84480; 85025; 85027; 86850; 86900; 86901; 87637; 93005; 93306; 96360; 96361; 99285; A9270; G0378; J7030; Q9967